=== PATIENT | female | born 1990 | race Asian ===

== ENCOUNTER 2022-03-20 11:48 | Emergency (ER) | payer MEDICAID, SELFPAY ==
--- NOTE | 2022-03-20 14:11 | ECG_ITS ---
Test Reason : LOW HEART RATE Blood Pressure : / mmHG Vent. Rate : 057 BPM Atrial Rate : 057 BPM P-R Int : 116 ms QRS Dur : 084 ms QT Int : 468 ms P-R-T Axes : 018 051 045 degrees QTc Int : 455 ms Sinus bradycardia Otherwise normal ECG No previous ECGs available Referred By: Hortensia De Jesus Electronically Signed By:JODI CORDOVA MD
--- NOTE | 2022-03-20 14:11 | ED.GENADULT ---
HPI - General Adult General Chief complaint: Dizziness Stated complaint: Low Heart Rate Sent by Dentist Time Seen by Provider: 03/20/22 14:33 Related Data Allergies Allergy/AdvReac Type Severity Reaction Status Date / Time No Known Allergies Allergy Verified 03/20/22 14:14 [No Known Allergies*] [facility] Social History Social History Advance Directives: No Physical Exam ED Vital Signs: Vital Signs - 24 hr 03/20/22 14:15 03/20/22 14:59 03/20/22 16:07 Temperature 97.3 F Pulse Rate 56 54 50 Respiratory Rate 18 18 Blood Pressure 132/51 L 131/63 132/56 L Pulse Oximetry 100 Oxygen Delivery Method Room Air Room Air 03/20/22 16:09 03/20/22 16:11 Temperature Pulse Rate 63 58 Respiratory Rate Blood Pressure 122/48 L 132/61 Pulse Oximetry Oxygen Delivery Method BMI result Body Mass Index 25.0 Course Course Course Narrative: 31-year-old female without significant past medical history presents as being referred from her dentist for ?low heart rate?. Patient states that she has had intermittent episodes of dizziness that has been ongoing and associated with some blurred vision for which she was going to see eye doctor. Otherwise, she denies any significant past family history or personal history and denies any fevers, chills, shortness of breath/chest pain/palpitations. VITAL SIGNS: Reviewed. GENERAL: Well developed, well nourished, in no acute distress. HEAD: Normocephalic/atraumatic EYES: PERRLA, EOMI EARS: Ext canals without abnormality OROPHARYNX: no oral lesions noted, posterior pharynx clear LUNGS: Normal breath sounds. No adventitious sounds or accessory muscle use. CARDIOVASCULAR: Regular rate and rhythm without noted murmurs ABDOMEN: Soft, non-tender, non-distended with bowel sounds. MUSCULOSKELETAL: No tenderness, deformities, or effusions noted on gross inspection. EXTREMITIES: No cyanosis, clubbing or edema. SKIN: Inspection of the skin reveals no rashes NEUROLOGIC: Alert and oriented x 4. Strength and sensation to light touch were grossly intact x 4. 31-year-old female history and clinical presentation likely consistent with physiologic bradycardia. -EKG, basic labs Medical Decision Making Lab Data Result diagrams: 03/20/22 14:59 03/20/22 14:59 Labs: Lab Results 03/20/22 03/20/22 03/20/22 Range/Units 14:59 14:59 14:59 WBC 7.8 (4.8-10.8) X10*3/uL RBC 4.70 (4.20-5.50) X10*6/uL Hgb 12.7 (12.0-16.0) g/dl Hct 39.6 (37.0-47.0) % MCV 84.3 (80.0-98.0) fL MCH 27.0 (27.0-33.0) pg MCHC 32.1 (31.0-35.0) g/dl RDW 13.8 (11.0-16.0) % Plt Count 272 (160-400) X10*3/uL MPV 9.2 L (9.4-12.3) fL Absolute Nucleated RBC 0.000 (0.0-0.012) X10*3/uL Nucleated RBC % (auto) 0.0 (0.0-0.2) /100WBC Sodium 137 (135-145) mmol/L Potassium 4.3 (3.3-5.1) mmol/L Chloride 103 (96-108) mmol/L Carbon Dioxide 27 (22-29) mmol/L Anion Gap 11 L (12-20) BUN 11 (9-16) mg/dL Creatinine 0.62 (0.5-1.4) mg/dL Estim Creat Clear Calc 120.8 Estimated GFR > 60 Random Glucose 87 (60-115) mg/dL Calcium 9.7 (8.4-10.2) mg/dL TSH 0.83 (0.32-4.0) uIU/mL Discharge Plan Discharge Clinical Impression: Bradycardia Patient Disposition: Home, Self-Care Instructions: Bradycardia (ED) Additional Instructions: Your blood work and thyroid levels were within normal limits. We le blood to test you for Lyme disease, however; can take several days to come back and we will call you with results. Educated to return to the hospital with worsening dizziness, feeling faint, passing out, fever, chills, changes in vision, worsening headache. Recommended follow-up with Cardiology and her primary care provider for further treatment and management. Referrals: Negrita Cuevas MD [Primary Care Provider] - Interventions: ED Discharge Assessment Last Done: 03/20/22 17:25 Discharge Date/Time: 03/20/22 17:26 Print Language: Maldivian
[2022-03-20 14:15] VITALS: BP 132/51; PULSE 56; RESP 18; TEMP 36.3; O2SAT 100; BMI 25.0
--- OUTSIDE RECORDS SUMMARY | 2022-03-20 14:44 | XMS_ITS | Continuity of Care Document ---
:1990 Author Organization [facility] Address [address] [place] [address]- Care Team Providers Name Role Phone Jessica Craig MD Primary Care Physician Encounter [facility] Date(s): 12/28/21 - 01/27/22 [facility] [address] [place], [place] [address] Allergies, Adverse Reactions, Alerts Substance Reaction Severity Status Other Environmental Allergy1 Act shun 1ammonia spray Immunizations Given and Recorded Vaccine Date Status Refusal Reason SARS-CoV-2 (COVID-19) mRNA BNT-162b2 vac 07/29/20 Recorde d SARS-CoV-2 (COVID-19) mRNA BNT-162b2 vac 07/08/20 Recorde d influenza virus vaccine, inactivated1 01/23/19 Given influenza virus vaccine, inactivated 02/06/18 Recorded Typhoid Vaccine, Inactivated 07/09/13 Given Hepatitis A Adult Vaccine2 07/09/13 Given tetanus/diphtheria/pertussis, acel(Tdap)3 07/03/10 Given 1Result Comment: [facility] [id number] Comment: [07/09/2013] hep A #13Admin Note: 03/09/08 vis form given Problem List Condition Confirmation Course Effective Dates Status Health Stat us Informant Avulsion of toenail Confirmed 09/20/12 Active Lower abdominal Confirmed Active pain Premenopause Confirmed Active menorrhagia Renal calculus or Confirmed 02/25/13 Active stone Travel vaccinations Confirmed Active Social History Social History Type Response Smoking Status Never smoker; Tobacco user i n household: No entered on: 07/29/14 Sex Patient Care team information PersonnelName: Jessica Craig MD Address: Address: [address] [place] [address]-
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
--- OUTSIDE RECORDS SUMMARY | 2022-03-20 14:44 | XMS_ITS | Continuity of Care Document ---
:1990 Author Organization [facility] Address [address] [place] [address]- Care Team Providers Name Role Phone Kiara BARRAZA, Jessica Grant Primary Care Physician [place] [facility] [place] 06/08/19 - 06/15/19 [facility] [address] [place] [address]- [facility] Encounter Diagnosis Acute URI (Discharge Diagnosis) - 06/08/19 Attending Physician: Sudheer Nazario DO Allergies, Adverse Reactions, Alerts Substance Reaction Severity Status NKA Active Immunizations Given and Recorded Vaccine Date Status Refusal Reason influenza virus vaccine, inactivated1 01/23/19 Given Typhoid Vaccine, Inactivated 07/09/13 Given Hepatitis A Adult Vaccine2 07/09/13 Given tetanus/diphtheria/pertussis, acel(Tdap)3 07/03/10 Given 1Result Comment: [facility] [phone] Comment: [07/09/2013] hep A #13Admin Note: 03/09/08 [...] Start Date: 06/07/16 Stop Date: 08/06/16 Status: Orderedmeclizine 25 mg oral tablet 1 tablet = 25 mg, By Mouth, 3 times a day, PRN for dizziness, for 7 days, # 21 tablet, 1 Refills, Acute 06/22/19 16:44:00 EST, 06/08/19 16:44:00 EST, Tablet, [facility], 169.5, cm, 06/08/19 16:11:00 EST, Height, 64.8, kg, 01/23/19 9:08:00 EDT,... Start Date: 06/08/19 Stop Date: 06/22/19 Status: Orderedmessage therapy message therapy, See Instructions, [...] 1 Refills, Maintenance, 06/08/19 16:45:00 EST, Tablet, [facility]pharm[facility] #2024, 169.5, cm, 06/08/19 16:11:00 EST, Height, 64.8, [...] or stone(Confirmed) 02/25/13 Active Travel vaccinations(Confirmed) Active Diagnosis Diagnosis Type Effective Dates Health Status Clinical Serv ice Informant Acute URI Discharge 06/08/19 Diagnosis Vital Signs Most recent to oldest [Reference Range]: 1 Height 169.5 cm (06/08/19 4:11 PM) Weight 66.1 kg (06/08/19 4:11 PM) Oxygen Saturation [94-100 %] 98 % (06/08/19 4:11 PM) Pulse Rate [55-90 bpm] 82 bpm (06/08/19 4:11 PM) Body Mass Index [18.5-24.99] 23.01 (06/08/19 4:11 PM) Blood Pressure [90-138/55-84 mm Hg] 108/82 mm Hg (06/08/19 4:11 PM) Temperature [96.8-100.4 DegF] 98.1 DegF (06/08/19 4:11 PM) Blood pressure sites Arm, left (06/08/19 4:11 PM) Temperature Route Oral (06/08/19 4:11 PM) Weight Obtained Via Pediatric scale (06/08/19 4:11 PM) Social History Social History Type Response Smoking Status Never smoker; Tobacco user i n household: No entered on: 07/29/14 Sex
--- OUTSIDE RECORDS SUMMARY | 2022-03-20 14:44 | XMS_ITS | Continuity of Care Document ---
:1990 Author Organization [facility] Address [address] [place] [address]- Care Team Providers Name Role Phone Kiara BARRAZA, Jessica Grant Primary Care Physician [phone] Encounter [facility] [place] Date(s): 07/25/21 - 08/01/21 [facility] [address] [place] [address]- Encounter Diagnosis Headache (Discharge Diagnosis) - 07/25/21 Vertigo (Discharge Diagnosis) - 07/25/21 Attending Physician: Nhi Garcia NP Allergies, Adverse Reactions, Alerts Substance Reaction Severity [...] Given tetanus/diphtheria/pertussis, acel(Tdap)3 07/03/10 Given 1Result Comment: [facility] [phone] Comment: [07/09/2013] hep A #13Admin Note: 03/09/08 [...] Start Date: 06/07/16 Stop Date: 08/06/16 Status: Orderedfluticasone 50 mcg/inh nasal spray 1 sprays, Nares, Both, 2 times a day, # 16 Gm, 0 Refills, Maintenance, 05/19/21 15:37:00 EST, [place]/pharmacy #2024, Partial fill upon patient request if the prescription is for a schedule II opioid drug., 1 sprays Nares, Both 2 times a day, 169.5... Start Date: 05/19/21 Status: Orderedmeclizine 25 mg oral tablet TAKE 1 TABLET BY MOUTH 3 TIMES A DAY FOR 7 DAYS FOR DIZZINESS Start Date: 03/11/20 Status: Orderedmessage therapy message therapy, See Instructions, [...] 1 Refills, Maintenance, 06/08/19 16:45:00 EST, Tablet, [facility]/pharmacy #2024, 169.5, cm, 06/08/19 16:11:00 EST, Height, [...] Dates Health Status Clinical Serv ice Informant Headache Discharge 07/25/21 Diagnosis Vertigo Discharge 07/25/21 Diagnosis Vital Signs Most recent to oldest [Reference Range]: 1 Height 169.5 cm (07/25/21 9:31 AM) Weight 71.9 kg (07/25/21 9:31 AM) Oxygen Saturation [94-100 %] 98 % (07/25/21 9:31 AM) Pulse Rate [55-90 bpm] 62 bpm (07/25/21 9:31 AM) Body Mass Index [18.5-24.99] 25.03 *H* (07/25/21 9:31 AM) Blood Pressure [90-138/55-84 mm Hg] 121/49 mm Hg (07/25/21 9:31 AM) Blood pressure sites Arm, right (07/25/21 9:31 AM) Weight Obtained Via Standing scale (07/25/21 9:31 AM) Social History Social History Type Response Smoking Status Never smoker; Tobacco user i n household: No entered on: 07/29/14 Sex
--- OUTSIDE RECORDS SUMMARY | 2022-03-20 14:44 | XMS_ITS | Continuity of Care Document ---
:1990 Author Organization [facility] Address [address] [place] [address]- Care Team Providers Name Role Phone Kiara BARRAZA, Jessica Grant Primary Care Physician [place] [facility] [place] 02/19/20 [facility] [address] [place] [address]- [facility] Attending Physician: Jairon Freitas MD Referring Physician: Jessica Craig MD Allergies, Adverse Reactions, Alerts Substance Reaction Severity Status Other Environmental Allergy1 Act shun 1ammonia spray Immunizations Given and Recorded Vaccine Date Status Refusal Reason influenza virus vaccine, inactivated1 01/23/19 Given Typhoid Vaccine, Inactivated 07/09/13 Given Hepatitis A Adult Vaccine2 07/09/13 Given tetanus/diphtheria/pertussis, acel(Tdap)3 07/03/10 Given 1Result Comment: [facility] [phone] Comment: [07/09/2013] hep A #13Admin Note: 03/09/08 [...] or stone(Confirmed) 02/25/13 Active Travel vaccinations(Confirmed) Active Social History Social History Type Response Smoking Status Never smoker; Tobacco user i n household: No entered on: 07/29/14 Sex
--- OUTSIDE RECORDS SUMMARY | 2022-03-20 14:44 | XMS_ITS | Continuity of Care Document ---
:1990 Author Organization [facility] Address [address] [place] [address]- Care Team Providers Name Role Phone Kiara BARRAZA, Jessica Grant Primary Care Physician [phone] Encounter [facility] Date(s): 03/11/20 - 04/10/20 [facility] [address] [place], [place] [address] Allergies, Adverse Reactions, Alerts Substance Reaction Severity Status Other Environmental Allergy1 Act shun 1ammonia spray Immunizations Given and Recorded Vaccine Date Status Refusal Reason influenza virus vaccine, inactivated1 01/23/19 Given Typhoid Vaccine, Inactivated 07/09/13 Given Hepatitis A Adult Vaccine2 07/09/13 Given tetanus/diphtheria/pertussis, acel(Tdap)3 07/03/10 Given 1Result Comment: [facility] [phone] Comment: [07/09/2013] hep A #13Admin Note: 03/09/08 [...] 08/06/16 Status: Orderedmeclizine 25 mg oral tablet TAKE [...]
--- OUTSIDE RECORDS SUMMARY | 2022-03-20 14:44 | XMS_ITS | Continuity of Care Document ---
:1990 Author Organization [facility] Address [address] [place] [address]- Care Team Providers Name Role Phone Kiara BARRAZA, Jessica Grant Primary Care Physician [phone] [place] [facility] [place] 02/13/22 [facility] [address] [place] [address]- Encounter Diagnosis Allergic reaction (Discharge Diagnosis) - 02/06/22 Attending Physician: Abhilash ALBARADO, Yumiko Referring Physician: Jessica Craig MD Allergies, Adverse Reactions, Alerts Substance Reaction Severity Status ammoniated mercury topical Activ e iohexol Active Omnipaque 3001 Active Other Environmental Allergy2 Act shun 1facial [id number] spray Immunizations Given and Recorded Vaccine Date Status Refusal Reason SARS-CoV-2 (COVID-19) mRNA BNT-162b2 vac 07/29/20 Recorde d SARS-CoV-2 (COVID-19) mRNA BNT-162b2 vac 07/08/20 Recorde d influenza virus vaccine, inactivated1 01/23/19 Given influenza virus vaccine, inactivated 02/06/18 Recorded Typhoid Vaccine, Inactivated 07/09/13 Given Hepatitis A Adult Vaccine2 07/09/13 Given tetanus/diphtheria/pertussis, acel(Tdap)3 07/03/10 Given 1Result Comment: [facility] [phone] Comment: [07/09/2013] hep A #13Admin Note: 03/09/08 vis form given Medications No Known Medications Problem List Condition Confirmation Course Effective Dates Status Health Stat us Informant Avulsion of toenail Confirmed 09/20/12 Active Lower abdominal Confirmed Active pain Premenopause Confirmed Active menorrhagia Renal calculus or Confirmed 02/25/13 Active stone Travel vaccinations Confirmed Active Diagnosis Diagnosis Type Effective Dates Health Status Clinical In formant Service Allergic Discharge 02/06/22 reaction Diagnosis Vital Signs Most recent to oldest [Reference Range]: 1 Height 163 cm (02/06/22 2:02 PM) Oxygen Saturation [94-100 %] 100 % (02/06/22 2:02 PM) Pulse Rate [55-90 bpm] 56 bpm (02/06/22 2:02 PM) Blood Pressure [90-138/55-84 mm Hg] 147/73 mm Hg *H* (02/06/22 2:02 PM) Respiratory Rate [16-30 br/min] 16 br/min (02/06/22 2:02 PM) Temperature [96.8-100.4 DegF] 97.8 DegF (02/06/22 2:02 PM) Mode of Delivery (Oxygen) Room air (02/06/22 2:02 PM) Blood pressure sites Arm, left (02/06/22 2:02 PM) Temperature Route Temporal (02/06/22 2:02 PM) Social History Social History Type Response Smoking Status Never smoker; Tobacco user i n household: No entered on: 07/29/14 Sex Patient Care team information PersonnelName: Kiara BARRAZA, Jessica Grant Address: [facility] [place] [address]
--- OUTSIDE RECORDS SUMMARY | 2022-03-20 14:44 | XMS_ITS | Continuity of Care Document ---
:1990 Author Organization [facility] Address [address] [place] [address]- Care Team Providers Name Role Phone Kiara BARRAZA, Jessica Grant Primary Care Physician [place] [facility] [place] Date(s): 02/06/22 - 03/08/22 [facility] [address] [place] [address]- Attending Physician: Kristin Hernandez Admitting Physician: Kristin Hernandez Referring Physician: AdmtrKristin Allergies, Adverse Reactions, Alerts Substance Reaction Severity Status ammoniated mercury topical Activ e iohexol Active Omnipaque 3001 Active Other Environmental Allergy2 Act shun 1facial [id number] spray Immunizations Given and Recorded Vaccine Date Status Refusal Reason SARS-CoV-2 (COVID-19) mRNA BNT-162b2 vac 07/29/20 Recorde d SARS-CoV-2 (COVID-19) mRNA BNT-162b2 vac 07/08/20 Recorde d influenza virus vaccine, inactivated1 01/23/19 Given influenza virus vaccine, inactivated 02/06/18 Recorded Typhoid Vaccine, Inactivated 07/09/13 Given Hepatitis A Adult Vaccine2 07/09/13 Given tetanus/diphtheria/pertussis, acel(Tdap)3 07/03/10 Given 1Result Comment: [facility] [phone] Comment: [07/09/2013] hep A #13Admin Note: 03/09/08 [...] on: 07/29/14 Sex Patient Care team information Care Team PersonnelName: Kiara BARRAZA, Jessica Grant Position: [facility] Primary Care Physician Member Role: PCP Address: Address: [address] [place] [address]- Care Team Related PersonsName: DEBI TURCIOSJOEL Address: home [address] [place] [address]
--- OUTSIDE RECORDS SUMMARY | 2022-03-20 14:44 | XMS_ITS | Continuity of Care Document ---
:1990 Author Organization [facility] Address [address] [place] [address]- Care Team Providers Name Role Phone Kiara BARRAZA, Jessica Grant Primary Care Physician [phone] [place] [facility] [place] 06/15/19 - 06/22/19 [facility] [address] [place] [address]- [facility] Encounter Diagnosis Acute URI (Discharge Diagnosis) - 06/23/19 Dizziness (Discharge Diagnosis) - 06/23/19 Attending Physician: Kiara BARRAZA, Jessica Grant Allergies, Adverse Reactions, Alerts Substance Reaction Severity Status NKA Active Immunizations Given and Recorded Vaccine Date Status Refusal Reason influenza virus vaccine, inactivated1 01/23/19 Given Typhoid Vaccine, Inactivated 07/09/13 Given Hepatitis A Adult Vaccine2 07/09/13 Given tetanus/diphtheria/pertussis, acel(Tdap)3 07/03/10 Given 1Result Comment: [facility] [phone] Comment: [07/09/2013] hep A #13Admin Note: 03/09/08 [...] Clinical Serv ice Informant Acute URI Discharge 06/23/19 Diagnosis Dizziness Discharge 06/23/19 Diagnosis Vital Signs Most recent to oldest [Reference Range]: 1 Height 169.5 cm (06/15/19 11:42 AM) Weight 66.8 kg (06/15/19 11:42 AM) Oxygen Saturation [94-100 %] 98 % (06/15/19 11:42 AM) Pulse Rate [55-90 bpm] 59 bpm (06/15/19 11:42 AM) Body Mass Index [18.5-24.99] 23.25 (06/15/19 11:42 AM) Blood Pressure [90-138/55-84 mm Hg] 104/64 mm Hg (06/15/19 11:42 AM) Temperature [96.8-100.4 DegF] 98.1 DegF (06/15/19 11:42 AM) Blood pressure sites Arm, right (06/15/19 11:42 AM) Weight Obtained Via Standing scale (06/15/19 11:42 AM) Social History Social History Type Response Smoking Status Never smoker; Tobacco user i n household: No entered on: 07/29/14 Sex
--- OUTSIDE RECORDS SUMMARY | 2022-03-20 14:44 | XMS_ITS | Continuity of Care Document ---
:1990 Author Organization [facility] Address [address] [place] [address]- Care Team Providers Name Role Phone Kiara BARRAZA, Jessica Grant Primary Care Physician [phone] Encounter [facility] [place] Date(s): 05/19/21 - 05/26/21 [facility] [address] [place] [address]- Encounter Diagnosis Urinary incontinence (Discharge Diagnosis) - 05/19/21 Pelvic pain (Discharge Diagnosis) - 05/19/21 Left shoulder pain (Discharge Diagnosis) - 05/19/21 Dizziness (Discharge Diagnosis) - 05/19/21 Attending Physician: Jessica Craig MD Allergies, Adverse Reactions, Alerts Substance Reaction Severity Status Other Environmental Allergy1 Act shun 1ammonia spray Immunizations Given and Recorded Vaccine Date Status Refusal Reason SARS-CoV-2 (COVID-19) mRNA BNT-162b2 vac 07/29/20 Recorde d SARS-CoV-2 (COVID-19) mRNA BNT-162b2 vac 07/08/20 Recorde d influenza virus vaccine, inactivated1 01/23/19 Given Typhoid Vaccine, Inactivated 07/09/13 Given Hepatitis A Adult Vaccine2 07/09/13 Given tetanus/diphtheria/pertussis, acel(Tdap)3 07/03/10 Given 1Result Comment: [facility] [phone] Comment: [07/09/2013] hep A #13Admin Note: 03/09/08 [...] Gm, 0 Refills, Maintenance, 05/19/21 15:37:00 EST, [place],[facility]/pharmacy #2024, Partial fill upon patient request [...] 1 Refills, Maintenance, 06/08/19 16:45:00 EST, Tablet, [facility]/pharmacy #2024, 169.5, cm, 06/08/19 16:11:00 EST, [...] Active Diagnosis Diagnosis Type Effective Dates Health Clinical Infor mant Status Service Urinary Discharge 05/19/21 incontinence Diagnosis Pelvic pain Discharge 05/19/21 Diagnosis Left shoulder pain Discharge 05/19/21 Diagnosis Dizziness Discharge 05/19/21 Diagnosis Vital Signs Most recent to oldest [Reference Range]: 1 Height 169.5 cm (05/19/21 2:17 PM) Pulse Rate [55-90 bpm] 64 bpm (05/19/21 2:17 PM) Blood Pressure [90-138/55-84 mm Hg] 121/78 mm Hg (05/19/21 2:17 PM) Blood pressure sites Arm, right (05/19/21 2:17 PM) Social History Social History Type Response Smoking Status Never smoker; Tobacco user i n household: No entered on: 07/29/14 Sex
--- OUTSIDE RECORDS SUMMARY | 2022-03-20 14:44 | XMS_ITS | Continuity of Care Document ---
:1990 Author Organization [facility] Address [address] [place] [address]- Care Team Providers Name Role Phone Kiara BARRAZA, Jessica Grant Primary Care Physician [place] [facility] [place]21 - 07/14/21 [facility] [address] [place], [place] [address] Allergies, Adverse Reactions, Alerts Substance Reaction Severity [...] tetanus/diphtheria/pertussis, acel(Tdap)3 07/03/10 Given 1Result Comment: [facility] [phone] Comment: [07/09/2013] hep A #13Admin Note: 03/09/08 [...] Gm, 0 Refills, Maintenance, 05/19/21 15:37:00 EST, [place],[facility]/pharmacy #2025, Partial fill upon patient request if the [...] 1 Refills, Maintenance, 06/08/19 16:45:00 EST, [place], [facility]/pharmacy #2025, 169.5, cm, 06/08/19 16:11:00 EST, Height, [...] E By Mouth, Daily, 0 Refills, Maintenance, 01/05/18 13:28:39 Start Date: 04/26/17 Status: Ordered Problem List Condition Effective Dates Status Health Status Informant Avulsion of toenail(Confirmed) 09/20/12 Active Premenopause menorrhagia(Confirmed) Active Renal calculus or stone(Confirmed) 02/25/13 Active Travel vaccinations(Confirmed) Active Social History Social History Type Response Smoking Status Never smoker; Tobacco user i n household: No entered on: 07/29/14 Sex
--- OUTSIDE RECORDS SUMMARY | 2022-03-20 14:44 | XMS_ITS | Continuity of Care Document ---
:1990 Author Organization [facility] Address [address] [place] [address]- Care Team Providers Name Role Phone Kiara BARRAZA, Jessica Grant Primary Care Physician [phone] [place] [facility] [place]29/20 - 01/15/21 [facility] [address] [place] [address]- Attending Physician: Jessica Craig MD Allergies, Adverse Reactions, Alerts Substance Reaction Severity Status Other Environmental Allergy1 Act shun 1ammonia spray Immunizations Given and Recorded Vaccine Date Status Refusal Reason influenza virus vaccine, inactivated1 01/23/19 Given Typhoid Vaccine, Inactivated 07/09/13 Given Hepatitis A Adult Vaccine2 07/09/13 Given tetanus/diphtheria/pertussis, acel(Tdap)3 07/03/10 Given 1Result Comment: [facility] [phone] Comment: [07/09/2013] hep A #13Admin Note: 03/09/08 [...]
--- OUTSIDE RECORDS SUMMARY | 2022-03-20 14:44 | XMS_ITS | Continuity of Care Document ---
:1990 Author Organization [facility] Address [address] [place] [address]- Care Team Providers Name Role Phone Kiara BRARAZA, Jessica Grant Primary Care Physician [place] [facility] [place] 12/27/21 - 01/27/22 [facility] [address] [place], [place] [address] Attending Physician: Jessica Craig MD Allergies, Adverse [...] Given tetanus/diphtheria/pertussis, acel(Tdap)3 07/03/10 Given 1Result Comment: [facility] [phone] Comment: [07/09/2013] hep A #13Admin Note: 03/09/08 [...] PersonnelName: Kiara BARRAZA, Jessica Grant Address: Address: [address] [place], [place] [address]
--- OUTSIDE RECORDS SUMMARY | 2022-03-20 14:44 | XMS_ITS | Continuity of Care Document ---
:1990 Author Organization [facility] Address [address] [place] [address]- Care Team Providers Name Role Phone Jessica Craig MD Primary Care Physician [place] [facility] [place] - 01/27/22 [facility] [address] [place], [place] [address] Attending Physician: Jessica Craig [...] tetanus/diphtheria/pertussis, acel(Tdap)3 07/03/10 Given 1Result Comment: [facility] [phone] Comment: [07/09/2013] hep A #13Admin Note: 03/09/08 [...] 07/29/14 Sex Patient Care team information PersonnelName: Blanca Craig MDce May D Address: Address: [address] [place] [address]-
--- OUTSIDE RECORDS SUMMARY | 2022-03-20 14:44 | XMS_ITS | Continuity of Care Document ---
:1990 Author Organization [facility] Address [address] [place] [address]- Care Team Providers Name Role Phone Kiara BARRAZA, Jessica Grant Primary Care Physician [phone] [place] [facility] [place]20 - 07/07/20 [facility] [address] [place] [address]- Attending Physician: Kristin Hernandez Admitting Physician: AdmKristin pappas Referring Physician: AdmtrKristin Allergies, Adverse Reactions, Alerts Substance Reaction Severity Status Other Environmental Allergy1 Act shun 1ammonia spray Immunizations Given and Recorded Vaccine Date Status Refusal Reason influenza virus vaccine, inactivated1 01/23/19 Given Typhoid Vaccine, Inactivated 07/09/13 Given Hepatitis A Adult Vaccine2 07/09/13 Given tetanus/diphtheria/pertussis, acel(Tdap)3 07/03/10 Given 1Result Comment: [facility] [phone] Comment: [07/09/2013] hep A #13Admin Note: 03/09/08 [...]
--- OUTSIDE RECORDS SUMMARY | 2022-03-20 14:44 | XMS_ITS | Continuity of Care Document ---
:1990 Author Organization [facility] Address [address] [place] [address]- Care Team Providers Name Role Phone Kiara BARRAZA, Jessica Grant Primary Care Physician [phone] En[place] [facility] [place] Date(s): 06/15/19 - 06/25/19 [facility] [address] [place] [address]- [facility] Attending Physician: Kristin Hernandez Admitting Physician: AdmKristin pappas Referring Physician: AdmtrKristin Allergies, Adverse Reactions, Alerts Substance Reaction Severity Status NKA Active Immunizations Given and Recorded Vaccine Date Status Refusal Reason influenza virus vaccine, inactivated1 01/23/19 Given Typhoid Vaccine, Inactivated 07/09/13 Given Hepatitis A Adult Vaccine2 07/09/13 Given tetanus/diphtheria/pertussis, acel(Tdap)3 07/03/10 Given 1Result Comment: [facility] [phone] Comment: [07/09/2013] hep A #13Admin Note: 03/09/08 [...]
--- OUTSIDE RECORDS SUMMARY | 2022-03-20 14:44 | XMS_ITS | Continuity of Care Document ---
:1990 Author Organization [facility] Address [address] [place] [address]- Care Team Providers Name Role Phone Kiara BARRAZA, Jessica Grant Primary Care Physician [place] [facility] [place] 07[place]11/21 - 08/10/21 [facility] [address] [place] [address]- Allergies, Adverse Reactions, Alerts Substance Reaction Severity [...] tetanus/diphtheria/pertussis, acel(Tdap)3 07/03/10 Given 1Result Comment: [facility] [phone] Comment: [07/09/2013] hep A #13Admin Note: 03/09/08 [...] Gm, 0 Refills, Maintenance, 05/19/21 15:37:00 EST, [place],[facility]/pharmacy #202, Partial fill upon patient request if the [...] Refills, Maintenance, 06/08/19 16:45:00 EST, Tablet, [facility]/pharmacy #2024, 169.5, cm, 06/08/19 16:11:00 EST, Height, [...]
--- OUTSIDE RECORDS SUMMARY | 2022-03-20 14:45 | XMS_ITS | Continuity of Care Document ---
:1990 Author Organization [facility] Address [address] [place] [address]- Care Team Providers Name Role Phone Kiara BARRAZA, Jessica Grant Primary Care Physician [phone] [place] [facility] [place]26[place]21 - 06/25/21 [facility] [address] [place], [place] [address] Allergies, Adverse Reactions, Alerts Substance Reaction [...] tetanus/diphtheria/pertussis, acel(Tdap)3 07/03/10 Given 1Result Comment: [facility] [phone] Comment: [07/09/2013] hep A #13Admin Note: 03/09/08 [...] Gm, 0 Refills, Maintenance, 05/19/21 15:37:00 EST, [place],[facility]/pharmacy #2025, Partial fill upon patient request if [...] 1 Refills, Maintenance, 06/08/19 16:45:00 EST, Tablet, [facility]/pharmacy #5, 169.5, cm, 06/08/19 16:11:00 EST, [...]
--- OUTSIDE RECORDS SUMMARY | 2022-03-20 14:45 | XMS_ITS | Continuity of Care Document ---
:1990 Author Organization [facility] Address [address] [place] [address]- Care Team Providers Name Role Phone Kiara BARRAZA, Jessica Grant Primary Care Physician En[facility] Date(s): 12/16/20 - 01/15/21 [facility] [address] [place], [place] [address] Attending Physician: Kristin Hernandez Admitting Physician: AdmKristin pappas Referring Physician: AdmtrKristin Allergies, Adverse Reactions, Alerts Substance Reaction Severity Status Other Environmental Allergy1 Act shun 1ammonia spray Immunizations Given and Recorded Vaccine Date Status Refusal Reason influenza virus vaccine, inactivated1 01/23/19 Given Typhoid Vaccine, Inactivated 07/09/13 Given Hepatitis A Adult Vaccine2 07/09/13 Given tetanus/diphtheria/pertussis, acel(Tdap)3 07/03/10 Given 1Result Comment: [facility] [phone] Comment: [07/09/2013] hep A #13Admin Note: 03/09/08 [...]
--- OUTSIDE RECORDS SUMMARY | 2022-03-20 14:45 | XMS_ITS | Continuity of Care Document ---
:1990 Author Organization [facility] Address [address] [place] [address]- Care Team Providers Name Role Phone Kiara BRARAZA, Jessica Grant Primary Care Physician [phone] [place] [facility] [place]21 - 08/24/21 [facility] [address] [place] [address]- Attending Physician: Kristin Hernandez Admitting Physician: Kristin [...] tetanus/diphtheria/pertussis, acel(Tdap)3 07/03/10 Given 1Result Comment: [facility] [phone] Comment: [07/09/2013] hep A #13Admin Note: 03/09/08 [...] Gm, 0 Refills, Maintenance, 05/19/21 15:37:00 EST, [place],[facility]/pharmacy #2024, Partial fill upon patient request [...] 1 Refills, Maintenance, 06/08/19 16:45:00 EST, Tablet, [facility]/pharmacy #2024, 169.5, cm, 06/08/19 16:11:00 EST, [...]
--- OUTSIDE RECORDS SUMMARY | 2022-03-20 14:45 | XMS_ITS | Continuity of Care Document ---
:1990 Author Organization [facility] Address [address] [place] [address]- Care Team Providers Name Role Phone Kiara BARRAZA, Jessica Grant Primary Care Physician [phone] [place] [facility] [place] 01[place]10[place]22 - 01/17/22 [facility] [address] [place] [address]- Encounter Diagnosis Lower abdominal pain (Discharge Diagnosis) - 01/10/22 Attending Physician: Jessica Craig MD Allergies, Adverse [...] Given tetanus/diphtheria/pertussis, acel(Tdap)3 07/03/10 Given 1Result Comment: [facility] [phone] Comment: [07/09/2013] hep A #13Admin Note: 03/09/08 vis form given Medications No Known Medications Problem List Condition Confirmation Course Effective Dates Status Health Stat us Informant Avulsion of toenail Confirmed 09/20/12 Active Lower abdominal Confirmed Active pain Premenopause Confirmed Active menorrhagia Renal calculus or Confirmed 02/25/13 Active stone Travel vaccinations Confirmed Active Diagnosis Diagnosis Type Effective Dates Health Status Clinical In formant Service Lower abdominal Discharge 01/10/22 pain Diagnosis Vital Signs Most recent to oldest [Reference Range]: 1 Height 163 cm (01/10/22 1:22 PM) Weight 72.2 kg (01/10/22 1:22 PM) Oxygen Saturation [94-100 %] 99 % (01/10/22 1:22 PM) Pulse Rate [55-90 bpm] 71 bpm (01/10/22 1:22 PM) Body Mass Index [18.5-24.99 kg/m2] 27.17 kg/m2 *H* (01/10/22 1:22 PM) Blood Pressure [90-138/55-84 mm Hg] 113/54 mm Hg (01/10/22 1:22 PM) Social History Social History Type Response Smoking Status Never smoker; Tobacco user i n household: No entered on: 07/29/14 Sex Patient Care team information PersonnelName: Kiara BARRAZA, Jessica Grant Address: Address: [address] [place] [address]
--- OUTSIDE RECORDS SUMMARY | 2022-03-20 14:45 | XMS_ITS | Continuity of Care Document ---
:1990 Author Organization [facility] Address [address] [place] [address]- Care Team Providers Name Role Phone Kiara BARRAZA, Jessica Grant Primary Care Physician [phone] [place] [facility] [place]21 - 10/04/21 [facility] [address] [place] [address]- Attending Physician: Jessica Craig MD Allergies, Adverse [...] Given 1Result Comment: [facility] [phone] Comment: [07/09/2013] hep A #13Admin Note: 03/09/08 [...] Gm, 0 Refills, Maintenance, 05/19/21 15:37:00 EST, [place],[facility]/pharmacy #2024, Partial fill upon patient request if [...] 1 Refills, Maintenance, 06/08/19 16:45:00 EST, Tablet, [facility]/pharmacy #2024, 169.5, cm, 06/08/19 16:11:00 EST, Height, [...]
--- OUTSIDE RECORDS SUMMARY | 2022-03-20 14:45 | XMS_ITS | Continuity of Care Document ---
:1990 Author Organization [facility] Address [address] [place] [address]- Care Team Providers Name Role Phone Kiara BARRAZA, Jessica Grant Primary Care Physician [place] [facility] [place] 09/04/21 - 10/04/21 [facility] [address] [place] [address]- Attending Physician: Kristin Hernandez Admitting Physician: Kristin [...] Given tetanus/diphtheria/pertussis, acel(Tdap)3 07/03/10 Given 1Result Comment: [facility] [phone] Comment: [07/09/2013] hep A #13Admin Note: 03/09/08 [...] Gm, 0 Refills, Maintenance, 05/19/21 15:37:00 EST, [place],[facility]/pharmacy #2024, Partial fill upon patient request [...] 1 Refills, Maintenance, 06/08/19 16:45:00 EST, Tablet, [facility]/pharmacy #2024, 169.5, cm, 06/08/19 16:11:00 EST, [...]
--- OUTSIDE RECORDS SUMMARY | 2022-03-20 14:45 | XMS_ITS | Continuity of Care Document ---
:1990 Author Organization [facility] Address [address] [place] [address]- Care Team Providers Name Role Phone Kiara BARRAZA, Jessica Grant Primary Care Physician En[place] [facility] [place] Date(s): 05/18/21 - 06/17/21 [facility] [address] [place], [place] [address] Allergies, Adverse Reactions, Alerts Substance Reaction [...] Given tetanus/diphtheria/pertussis, acel(Tdap)3 07/03/10 Given 1Result Comment: [facility] [phone] Comment: [07/09/2013] hep A #13Admin Note: 03/09/08 [...] Gm, 0 Refills, Maintenance, 05/19/21 15:37:00 EST, [place],[facility]/pharmacy #2025, Partial fill upon patient request [...] 1 Refills, Maintenance, 06/08/19 16:45:00 EST, Tablet, [facility]/pharmacy #5, 169.5, cm, 06/08/19 16:11:00 EST, Height, [...]
--- OUTSIDE RECORDS SUMMARY | 2022-03-20 14:45 | XMS_ITS | Continuity of Care Document ---
:1990 Author Organization [facility] Address [address] [place] [address]- Care Team Providers Name Role Phone Kiara BARRAZA, Jessica Grant Primary Care Physician En[place] [facility] [place] Date(s): 10/15/19 - 11/14/19 [facility] [address] [place] [address]- [facility] Attending Physician: Eduardo Hernandez8 Admitting Physician: AdmKristin pappas Referring Physician: AdmtrKristin Allergies, Adverse Reactions, Alerts Substance Reaction Severity Status Other Environmental Allergy1 Act shun 1ammonia spray Immunizations Given and Recorded Vaccine Date Status Refusal Reason influenza virus vaccine, inactivated1 01/23/19 Given Typhoid Vaccine, Inactivated 07/09/13 Given Hepatitis A Adult Vaccine2 07/09/13 Given tetanus/diphtheria/pertussis, acel(Tdap)3 07/03/10 Given 1Result Comment: [facility] [phone] Comment: [07/09/2013] hep A #13Admin Note: 03/09/08 [...]
--- OUTSIDE RECORDS SUMMARY | 2022-03-20 14:45 | XMS_ITS | Continuity of Care Document ---
:1990 Author Organization [facility] Address [address] [place] [address]- Care Team Providers Name Role Phone Kiara BARRAZA, Jessica Grant Primary Care Physician [phone] [place] [facility] [place]19 - 10/22/19 [facility] [address] [place] [address]- [facility] Encounter Diagnosis Shoulder pain, right (Discharge Diagnosis) - 10/15/19 Cervicalgia (Discharge Diagnosis) - 10/15/19 Dizziness (Discharge Diagnosis) - 10/15/19 Attending Physician: Kiara BARRAZA, Jessica Grant Allergies, Adverse Reactions, Alerts Substance Reaction Severity Status Other Environmental Allergy1 Act shun 1ammonia spray Immunizations Given and Recorded Vaccine Date Status Refusal Reason influenza virus vaccine, inactivated1 01/23/19 Given Typhoid Vaccine, Inactivated 07/09/13 Given Hepatitis A Adult Vaccine2 07/09/13 Given tetanus/diphtheria/pertussis, acel(Tdap)3 07/03/10 Given 1Result Comment: [facility] [phone] Comment: [07/09/2013] hep A #13Admin Note: 03/09/08 [...] days, # 21 tablet, 1 Refills, Acute 10/29/19 13:49:00 EDT, 10/15/19 13:49:00 EDT, Tablet, [facility]/pharmacy #2025, 169.5, cm, 10/15/19 13:14:00 EDT, Height, 64.8, kg, 01/23/19 9:08:00 EDT,... Start Date: 10/15/19 Stop Date: 10/29/19 Status: Orderedmessage therapy message therapy, See Instructions, [...] 1 Refills, Maintenance, 06/08/19 16:45:00 EST, Tablet, [facility]/pharmacy #2025, 169.5, cm, 06/08/19 16:11:00 EST, [...] Dates Health Clinical Infor mant Status Service Shoulder pain, Discharge 10/15/19 right Diagnosis Cervicalgia Discharge 10/15/19 Diagnosis Dizziness Discharge 10/15/19 Diagnosis Vital Signs Most recent to oldest [Reference Range]: 1 Height 169.5 cm (10/15/19 1:14 PM) Weight 66.3 kg (10/15/19 1:14 PM) Pulse Rate [55-90 bpm] 70 bpm (10/15/19 1:14 PM) Body Mass Index [18.5-24.99] 23.08 (10/15/19 1:14 PM) Blood Pressure [90-138/55-84 mm Hg] 97/75 mm Hg (10/15/19 1:14 PM) Blood pressure sites Arm, left (10/15/19 1:14 PM) Social History Social History Type Response Smoking Status Never smoker; Tobacco user i n household: No entered on: 07/29/14 Sex
--- OUTSIDE RECORDS SUMMARY | 2022-03-20 14:45 | XMS_ITS | Continuity of Care Document ---
:1990 Author Organization [facility] Address [address] [facility], [address] [address]- Care Team Providers Name Role Phone Kiara BARRAZA, Jessica Grant Primary Care Physician Encounter 08/01/21 - 09/01/21 [facility] [address], [address] [address]- Attending Physician: Nhi Garcia NP Admitting Physician: Radha ALBARADO, Nhi Referring Physician: Nhi Garcia NP Allergies, Adverse Reactions, [...] Given tetanus/diphtheria/pertussis, acel(Tdap)3 07/03/10 Given 1Result Comment: [facility] [phone] Comment: [07/09/2013] hep A #13Admin Note: 03/09/08 [...] Gm, 0 Refills, Maintenance, 05/19/21 15:37:00 EST, [place],[facility]/pharmacy #2024, Partial fill upon patient request [...] 1 Refills, Maintenance, 06/08/19 16:45:00 EST, [place]t, [facility]/pharmacy #2024, 169.5, cm, 06/08/19 16:11:00 EST, [...]
--- OUTSIDE RECORDS SUMMARY | 2022-03-20 14:45 | XMS_ITS | Continuity of Care Document ---
:1990 Author Organization [facility] Address [address] [place] [address]- Care Team Providers Name Role Phone Kiara BARRAZA, Jessica Grant Primary Care Physician [place] [facility] [place] [place] 12/25/21 - 01/01/22 [facility] [address] [place] [address]- Encounter Diagnosis Dizziness (Discharge Diagnosis) - 12/25/21 Attending Physician: Not on Staff, Attending MD Referring Physician: Kiara BARRAZA, Jessica Grant Allergies, Adverse [...] tetanus/diphtheria/pertussis, acel(Tdap)3 07/03/10 Given 1Result Comment: [facility] [phone] Comment: [07/09/2013] hep A #13Admin Note: 03/09/08 [...] Gm, 0 Refills, Maintenance, 05/19/21 15:37:00 EST, [place],[facility]/pharmacy #2024, Partial fill upon patient request if [...] 1 Refills, Maintenance, 06/08/19 16:45:00 EST, Tablet, [facility]/pharmacy #2024, 169.5, cm, 06/08/19 16:11:00 EST, Height, [...] Dates Health Status Clinical Serv ice Informant Dizziness Discharge 12/25/21 Diagnosis Vital Signs Most recent to oldest [Reference Range]: 1 Height 169.5 cm (12/25/21 8:30 AM) Oxygen Saturation [94-100 %] 100 % (12/25/21 8:30 AM) Pulse Rate [55-90 bpm] 75 bpm (12/25/21 8:30 AM) Blood Pressure [90-138/55-84 mm Hg] 119/76 mm Hg (12/25/21 8:30 AM) Respiratory Rate [16-30 br/min] 16 br/min (12/25/21 8:30 AM) Temperature [96.8-100.4 DegF] 97.3 DegF (12/25/21 8:30 AM) Mode of Delivery (Oxygen) Room air (12/25/21 8:30 AM) Blood pressure sites Arm, right (12/25/21 8:30 AM) Temperature Route Femoral (12/25/21 8:30 AM) Social History Social History Type Response Smoking Status Never smoker; Tobacco user i n household: No entered on: 07/29/14 Sex Care Team PersonnelName: Kiara BARRAZA, Jessica Grant Address: [address]
--- OUTSIDE RECORDS SUMMARY | 2022-03-20 14:45 | XMS_ITS | Continuity of Care Document ---
:1990 Author Organization [facility] Address [address] [place] [address]- Care Team Providers Name Role Phone Kiara BARRAZA, Jessica Grant Primary Care Physician Encounter [facility] Date(s): 01/10/22 - 02/09/22 [facility] [address] [place], [place] [address] Attending Physician: Kristin Hernandez Admitting Physician: Kristin Hernandez Referring Physician: AdmtrKristin Allergies, Adverse Reactions, Alerts Substance Reaction Severity Status ammoniated mercury topical Activ e iohexol Active Omnipaque 3001 Active Other Environmental Allergy2 Act shun 1facial [id number] spray Immunizations Given and Recorded Vaccine Date Status Refusal Reason SARS-CoV-2 (COVID-19) mRNA BNT-162b2 vac 07/29/20 Recorde d SARS-CoV-2 (COVID-19) mRNA BNT-162b2 vac 07/08/20 Recorde d influenza virus vaccine, inactivated1 01/23/19 Given influenza virus vaccine, inactivated 02/06/18 Recorded Typhoid Vaccine, Inactivated 07/09/13 Given Hepatitis A Adult Vaccine2 07/09/13 Given tetanus/diphtheria/pertussis, acel(Tdap)3 07/03/10 Given 1Result Comment: [facility] [phone] Comment: [07/09/2013] hep A #13Admin Note: 03/09/08 [...] Care team information PersonnelName: Kiara BARRAZA, Jessica August Juanita Address: Address: [address] [place] [id number]
--- OUTSIDE RECORDS SUMMARY | 2022-03-20 14:45 | XMS_ITS | Continuity of Care Document ---
:1990 Author Organization [facility] Address [address] [place] [address]- Care Team Providers Name Role Phone Kiara BARRAZA, Jessica Grant Primary Care Physician Encounter [facility] [place] Date(s): 06/14/21 - 07/16/21 [facility] [address] [place] [address]- Attending Physician: Jessica Craig MD Allergies, Adverse [...] Given tetanus/diphtheria/pertussis, acel(Tdap)3 07/03/10 Given 1Result Comment: [facility] [phone] Comment: [07/09/2013] hep A #13Admin Note: 03/09/08 [...] Gm, 0 Refills, Maintenance, 05/19/21 15:37:00 EST, [place],[facility]/pharmacy #2024, Partial fill upon patient request if [...] 1 Refills, Maintenance, 06/08/19 16:45:00 EST, [place], [facility]/pharmacy #2024, 169.5, cm, 06/08/19 16:11:00 EST, [...]
--- OUTSIDE RECORDS SUMMARY | 2022-03-20 14:45 | XMS_ITS | Continuity of Care Document ---
:1990 Author Organization [facility] Address [address] [place] [address]- Care Team Providers Name Role Phone Kiara BARRAZA, Jessica Grant Primary Care Physician Encounter [facility] Date(s): 02/05/22 - 03/07/22 [facility] [address] [place], [place] [address] Allergies, Adverse Reactions, Alerts Substance Reaction Severity Status ammoniated mercury topical Activ e iohexol Active Omnipaque 3001 Active Other Environmental Allergy2 Act shun 1facial [id number] spray Immunizations Given and Recorded Vaccine Date Status Refusal Reason SARS-CoV-2 (COVID-19) mRNA BNT-162b2 vac 07/29/20 Recorde d SARS-CoV-2 (COVID-19) mRNA BNT-162b2 vac 07/08/20 Recorde d influenza virus vaccine, inactivated1 01/23/19 Given influenza virus vaccine, inactivated 02/06/18 Recorded Typhoid Vaccine, Inactivated 07/09/13 Given Hepatitis A Adult Vaccine2 07/09/13 Given tetanus/diphtheria/pertussis, acel(Tdap)3 07/03/10 Given 1Result Comment: [facility] [phone] Comment: [07/09/2013] hep A #13Admin Note: 03/09/08 [...] Team PersonnelName: Kiara BARRAZA, Jessica Grant Position: [facility] Primary Care Physician Member Role: PCP Address: Address: [address] [place] [address]- Care Team Related PersonsName: KAROLINA DIGNA Address: home [address] [place] [address]
--- OUTSIDE RECORDS SUMMARY | 2022-03-20 14:45 | XMS_ITS | Continuity of Care Document ---
:1990 Author Organization [facility] Address [address] [place] [address]- Care Team Providers Name Role Phone Kiara BARRAZA, Jessica Grant Primary Care Physician [phone] [place] [facility] Date[place] 06/19/21 - 07/19/21 [facility] [address] [place], [place] [address] Attending Physician: Kristin Hernandez Admitting Physician: Kristin [...] tetanus/diphtheria/pertussis, acel(Tdap)3 07/03/10 Given 1Result Comment: [facility] [phone] Comment: [07/09/2013] hep A #13Admin Note: 03/09/08 [...] Gm, 0 Refills, Maintenance, 05/19/21 15:37:00 EST, [place],[facility]/pharmacy #2024, Partial fill upon patient request [...] 1 Refills, Maintenance, 06/08/19 16:45:00 EST, [place], [facility]/pharmacy #2024, 169.5, cm, 06/08/19 16:11:00 EST, [...]
--- OUTSIDE RECORDS SUMMARY | 2022-03-20 14:45 | XMS_ITS | Continuity of Care Document ---
:1990 Author Organization [facility] Address [address] [place] [address]- Care Team Providers Name Role Phone Jessica Craig MD Primary Care Physician [phone] Encounter [facility] Date(s): 12/27/21 - 01/26/22 [facility] [address] [place], [place] [address] Allergies, Adverse Reactions, Alerts Substance [...] tetanus/diphtheria/pertussis, acel(Tdap)3 07/03/10 Given 1Result Comment: [facility] [phone] Comment: [07/09/2013] hep A #13Admin Note: 03/09/08 [...] PersonnelName: Jessica Craig MD Address: Address: [address] [place] [address]-
--- OUTSIDE RECORDS SUMMARY | 2022-03-20 14:45 | XMS_ITS | Continuity of Care Document ---
:1990 Author Organization [facility] Address [address] [place] [address]- Care Team Providers Name Role Phone Kiara BARRAZA, Jessica Grant Primary Care Physician [phone] Encounter [facility] Date(s): 01/08/22 - 02/07/22 [facility] [address] [place], [place] [address] Allergies, Adverse Reactions, Alerts Substance Reaction Severity Status ammoniated mercury topical Activ e iohexol Active Omnipaque 3001 Active Other Environmental Allergy2 Act shun 1facial [id number] spray Immunizations Given and Recorded Vaccine Date Status Refusal Reason SARS-CoV-2 (COVID-19) mRNA BNT-162b2 vac 07/29/20 Recorde d SARS-CoV-2 (COVID-19) mRNA BNT-162b2 vac 07/08/20 Recorde d influenza virus vaccine, inactivated1 01/23/19 Given influenza virus vaccine, inactivated 02/06/18 Recorded Typhoid Vaccine, Inactivated 07/09/13 Given Hepatitis A Adult Vaccine2 07/09/13 Given tetanus/diphtheria/pertussis, acel(Tdap)3 07/03/10 Given 1Result Comment: [facility] [phone] Comment: [07/09/2013] hep A #13Admin Note: 03/09/08 [...] team information PersonnelName: Kiara BARRAZA, Jessica August Address: Address: [address] [place] [address]
--- OUTSIDE RECORDS SUMMARY | 2022-03-20 14:45 | XMS_ITS | Continuity of Care Document ---
:1990 Author Organization [facility] pt Address [address] [place] [address]- Care Team Providers Name Role Phone Kiara BARRAZA, Jessica Grant Primary Care Physician En[place] [facility] Date(s): 01/16/20 - 01/23/20 [facility] [address] [place] [address]- [facility] Attending Physician: Hue Sousa Referring Physician: Kiara BARRAZA, Jessica Grant Allergies, Adverse Reactions, Alerts Substance Reaction Severity Status Other Environmental Allergy1 Act shun 1ammonia spray Immunizations Given and Recorded Vaccine Date Status Refusal Reason influenza virus vaccine, inactivated1 01/23/19 Given Typhoid Vaccine, Inactivated 07/09/13 Given Hepatitis A Adult Vaccine2 07/09/13 Given tetanus/diphtheria/pertussis, acel(Tdap)3 07/03/10 Given 1Result Comment: [facility] [phone] Comment: [07/09/2013] hep A #13Admin Note: 03/09/08 [...] Refills, Maintenance, 06/08/19 16:45:00 EST, Tablet, [facility]/pharmacy #2025, 169.5, cm, 06/08/19 16:11:00 EST, Height, [...] oldest [Reference Range]: 1 Height 169.5 cm (01/16/20 9:38 AM) Oxygen Saturation [94-100 %] 100 % (01/16/20 9:38 AM) Pulse Rate [55-90 bpm] 62 bpm (01/16/20 9:38 AM) Blood Pressure [90-138/55-84 mm Hg] 114/53 mm Hg (9/26/20 9:38 AM) Respiratory Rate [16-30 br/min] 25 br/min (01/16/20 9:38 AM) Temperature [96.8-100.4 DegF] 97.9 DegF (01/16/20 9:38 AM) Mode of Delivery (Oxygen) Room air (01/16/20 9:38 AM) Blood pressure sites Arm, left (01/16/20 9:38 AM) Temperature Route Temporal (01/16/20 9:38 AM) Dry Weight 65.8 kg (01/16/20 9:38 AM) Weight Obtained Via Standing scale (01/16/20 9:38 AM) Social History Social History Type Response Smoking Status Never smoker; Tobacco user i n household: No entered on: 07/29/14 Sex
--- OUTSIDE RECORDS SUMMARY | 2022-03-20 14:45 | XMS_ITS | Continuity of Care Document ---
:1990 Author Organization [facility] Address [address] [place] [address]- Care Team Providers Name Role Phone Kiara BARRAZA, Jessica Grant Primary Care Physician Encounter [facility] Date(s): 06/07/20 - 06/14/20 [facility] [address] [place] [address]- Encounter Diagnosis Neuropathy of hand (Discharge Diagnosis) - 06/07/20 Attending Physician: Payam Falk MD Allergies, Adverse Reactions, Alerts Substance Reaction Severity Status Other Environmental Allergy1 Act shun 1ammonia spray Immunizations Given and Recorded Vaccine Date Status Refusal Reason influenza virus vaccine, inactivated1 01/23/19 Given Typhoid Vaccine, Inactivated 07/09/13 Given Hepatitis A Adult Vaccine2 07/09/13 Given tetanus/diphtheria/pertussis, acel(Tdap)3 07/03/10 Given 1Result Comment: [facility] [phone] Comment: [07/09/2013] hep A #13Admin Note: 03/09/08 [...] Dates Health Clinical Infor mant Status Service Neuropathy of Discharge 06/07/20 hand Diagnosis Vital Signs Most recent to oldest [Reference Range]: 1 Height 169.5 cm (06/07/20 9:28 AM) Social History Social History Type Response Smoking Status Never smoker; Tobacco user i n household: No entered on: 07/29/14 Sex
--- OUTSIDE RECORDS SUMMARY | 2022-03-20 14:45 | XMS_ITS | Continuity of Care Document ---
:1990 Author Organization [facility] Address [address] [place] [address]- Care Team Providers Name Role Phone Kiara BARRAZA, Jessica Grant Primary Care Physician Encounter [facility] Date(s): 06/14/21 - 07/19/21 [facility] [address] [place] [address]- Attending Physician: Jessica Craig MD Allergies, Adverse [...] Given tetanus/diphtheria/pertussis, acel(Tdap)3 07/03/10 Given 1Result Comment: [facility] [phone] Comment: [07/09/2013] hep A #13Admin Note: 03/09/08 [...] Gm, 0 Refills, Maintenance, 05/19/21 15:37:00 EST, [place],[facility]/pharmacy #2024, Partial fill upon patient [...]
--- OUTSIDE RECORDS SUMMARY | 2022-03-20 14:45 | XMS_ITS | Continuity of Care Document ---
:1990 Author Organization [facility] Address [address] [place] [address]- Care Team Providers Name Role Phone Kiara BARRAZA, Jessica Grant Primary Care Physician Encounter [facility] Date(s): 03/14/20 - 04/13/20 [facility] [address] [place] [address]- Attending Physician: Krisitn Hernandez Admitting Physician: AdmKristin pappas Referring Physician: AdmtrKristin Allergies, Adverse Reactions, Alerts Substance Reaction Severity Status Other Environmental Allergy1 Act shun 1ammonia spray Immunizations Given and Recorded Vaccine Date Status Refusal Reason influenza virus vaccine, inactivated1 01/23/19 Given Typhoid Vaccine, Inactivated 07/09/13 Given Hepatitis A Adult Vaccine2 07/09/13 Given tetanus/diphtheria/pertussis, acel(Tdap)3 07/03/10 Given 1Result Comment: [facility] [phone] Comment: [07/09/2013] hep A #13Admin Note: 03/09/08 [...]
--- OUTSIDE RECORDS SUMMARY | 2022-03-20 14:45 | XMS_ITS | Continuity of Care Document ---
:1990 Author Organization [facility] Address [address] [place] [address]- Care Team Providers Name Role Phone Kiara BARRAZA, Jessica Grant Primary Care Physician [place] [facility] Date(s): 05/11/21 - 06/10/21 [facility] [address] [place], [place] [address] Allergies, Adverse Reactions, Alerts Substance Reaction [...] Given tetanus/diphtheria/pertussis, acel(Tdap)3 07/03/10 Given 1Result Comment: [facility] [phone] Comment: [07/09/2013] hep A #13Admin Note: 03/09/08 [...] Gm, 0 Refills, Maintenance, 05/19/21 15:37:00 EST, [place],[facility]/pharmacy #2024, Partial fill upon patient request [...] 1 Refills, Maintenance, 06/08/19 16:45:00 EST, Tablet, [facility]/pharmacy #2024, 169.5, cm, 06/08/19 16:11:00 EST, [...]
--- OUTSIDE RECORDS SUMMARY | 2022-03-20 14:45 | XMS_ITS | Continuity of Care Document ---
:1990 Author Organization [facility] Address [address] [place] [address]- Care Team Providers Name Role Phone Kiara BARRAZA, Jessica Grant Primary Care Physician [phone] [place] [facility] [place] 12/25/21 - 01/24/22 [facility] [address] [place] [address]- Attending Physician: Kristin Hernandez Admitting Physician: Kristin [...] Given tetanus/diphtheria/pertussis, acel(Tdap)3 07/03/10 Given 1Result Comment: [facility] [phone] Comment: [07/09/2013] hep A #13Admin Note: 03/09/08 [...] PersonnelName: Kiara BARRAZA, Jessica Grant Address: Address: [address] [place] [id number]
--- OUTSIDE RECORDS SUMMARY | 2022-03-20 14:45 | XMS_ITS | Continuity of Care Document ---
:1990 Author Organization [facility] Address [address] [facility], [address] [address]- Care Team Providers Name Role Phone Kiara BARRAZA, Jessica Grant Primary Care Physician Encounter 02/06/22 - 02/13/22 [facility] [address], [address] [address]- Attending Physician: Jessica Craig MD Admitting Physician: Jessica Craig MD Referring Physician: Jessica Craig MD Allergies, Adverse Reactions, Alerts Substance Reaction Severity Status ammoniated mercury topical Activ e iohexol Active Omnipaque 3001 Active Other Environmental Allergy2 Act shun 1facial yzjrr9mqjckkr spray Immunizations Given and Recorded Vaccine Date Status Refusal Reason SARS-CoV-2 (COVID-19) mRNA BNT-162b2 vac 07/29/20 Recorde d SARS-CoV-2 (COVID-19) mRNA BNT-162b2 vac 07/08/20 Recorde d influenza virus vaccine, inactivated1 01/23/19 Given influenza virus vaccine, inactivated 02/06/18 Recorded Typhoid Vaccine, Inactivated 07/09/13 Given Hepatitis A Adult Vaccine2 07/09/13 Given tetanus/diphtheria/pertussis, acel(Tdap)3 07/03/10 Given 1Result Comment: [facility] [phone] Comment: [07/09/2013] hep A #13Admin Note: 03/09/08 [...] Kiara BARRAZA, Jessica August Juanita Address: Address: [address] [place] [id number]
--- NOTE | 2022-03-20 14:48 | ED.GENADULT ---
HPI - General Adult General Chief complaint: Dizziness Stated complaint: Low Heart Rate Sent by Dentist Time Seen by Provider: 03/20/22 14:33 Source: patient Mode of arrival: ambulatory Limitations: no limitations History of Present Illness HPI narrative: 31-year-old female with no significant past medical history presents to the emergency department after being referred by her dentist for having a ?low heart rate? during her appointment. She was scheduled to receive anesthesia for her the 10:30 a.m. dental procedure however the dentist was hesitant to provide the incision due to bradycardia. Patient reports that she has had dizziness and lightheaded for 3-4 months but has never spoken to a doctor regarding this. He denies any known illness or sick contacts. She reports she has a constant headache, for the last 12 years, which she describes as more of a ?lightheadedness?. She denies any past medical history although she has not followed regularly by a provider. She denies any prescribed medication, alcohol, marijuana, or other drugs. She also reports seeing a circular rash on her upper right leg and near her foot/ankle about 3-4 months ago. She denies any known tick bites, however; she states she was bitten by a bug, not a tick per patient, several months ago on her left upper leg and complains of weakness in the left leg since the bite. She denies any fever, chills, nausea, vomiting, diarrhea, constipation, vision changes. Onset (ago): hour(s) Related Data Allergies Allergy/AdvReac Type Severity Reaction Status Date / Time No Known Allergies Allergy Verified 03/20/22 14:14 [No Known Allergies*] [facility] Social History Social History Advance Directives: No Physical Exam ED Vital Signs: Vital Signs - 24 hr 03/20/22 14:15 03/20/22 14:59 03/20/22 16:07 Temperature 97.3 F Pulse Rate 56 54 50 Respiratory Rate 18 18 Blood Pressure 132/51 L 131/63 132/56 L Pulse Oximetry 100 Oxygen Delivery Method Room Air Room Air 03/20/22 16:09 03/20/22 16:11 Temperature Pulse Rate 63 58 Respiratory Rate Blood Pressure 122/48 L 132/61 Pulse Oximetry Oxygen Delivery Method BMI result Body Mass Index 25.0 Course Course Course Narrative: 1445: Lab work ordered including TSH, free T4, and Lyme workup. EKG completed, sinus bradycardia. Patient vital signs stable with BP 132/51 and HR 56. Patient appears in no acute distress 1515: to complete orthostatic bp Medical Decision Making [facility] Narrative Medical decision making narrative: 31-year-old female with no significant past medical history presents to the emergency department after being referred by her dentist for having a ?low heart rate? during her appointment. EKG completed, sinus bradycardia. Blood work unremarkable. TSH and free T4 within normal limits, indicating no thyroid disorder. Resting BP stable, heart rate 50s. Orthostatic BPs with no significant change. Serology to rule out Lyme disease drawn with results pending. Patient denies changes in symptoms from admission. States she has a baseline lightheadedness which has not changed over the past 3-4 months. Plan to discharge patient to follow-up with her regarding serology results. Low suspicion for acute MRI as EKG is sinus bradycardia without ectopy or AV block. Patient is safe for discharge. History, physical exam findings, and plan discussed with patient with no unanswered questions at this time. Educated to return to the hospital with worsening dizziness, feeling faint, passing out, fever, chills, changes in vision, worsening headache. Recommended follow-up with Cardiology and her primary care provider for further treatment and management. Lab Data Result diagrams: 03/20/22 14:59 03/20/22 14:59 Labs: Lab Results 03/20/22 03/20/22 03/20/22 Range/Units 14:59 14:59 14:59 WBC 7.8 (4.8-10.8) X10*3/uL RBC 4.70 (4.20-5.50) X10*6/uL Hgb 12.7 (12.0-16.0) g/dl Hct 39.6 (37.0-47.0) % MCV 84.3 (80.0-98.0) fL MCH 27.0 (27.0-33.0) pg MCHC 32.1 (31.0-35.0) g/dl RDW 13.8 (11.0-16.0) % Plt Count 272 (160-400) X10*3/uL MPV 9.2 L (9.4-12.3) fL Absolute Nucleated RBC 0.000 (0.0-0.012) X10*3/uL Nucleated RBC % (auto) 0.0 (0.0-0.2) /100WBC Sodium 137 (135-145) mmol/L Potassium 4.3 (3.3-5.1) mmol/L Chloride 103 (96-108) mmol/L Carbon Dioxide 27 (22-29) mmol/L Anion Gap 11 L (12-20) BUN 11 (9-16) mg/dL Creatinine 0.62 (0.5-1.4) mg/dL Estim Creat Clear Calc 120.8 Estimated GFR > 60 Random Glucose 87 (60-115) mg/dL Calcium 9.7 (8.4-10.2) mg/dL TSH 0.83 (0.32-4.0) uIU/mL Discharge Plan Discharge Clinical Impression: Bradycardia Patient Disposition: Home, Self-Care Instructions: Bradycardia (ED) Additional Instructions: Your blood work and thyroid levels were within normal limits. We le blood to test you for Lyme disease, however; can take several days to come back and we will call you with results. Educated to return to the hospital with worsening dizziness, feeling faint, passing out, fever, chills, changes in vision, worsening headache. Recommended follow-up with Cardiology and her primary care provider for further treatment and management. Referrals: Negrita Cuevas MD [Primary Care Provider] - Print Language: Telugu
[2022-03-20 14:59] VITALS: BP 131/63; PULSE 54; RESP 18
[2022-03-20 15:05] LABS: Hematocrit 39.6 % (37.0-47.0); Hemoglobin 12.7 g/dl (12.0-16.0); Mean Corpuscular HGB Conc 32.1 g/dl (31.0-35.0); Mean Corpuscular Volume 84.3 fL (80.0-98.0); Mean Platelet Volume 9.2 fL (9.4-12.3); Platelet Count 272 X10*3/uL (160-400); Red Cell Distribution Width 13.8 % (11.0-16.0); White Blood Count 7.8 X10*3/uL (4.8-10.8)
[2022-03-20 15:25] LABS: Anion Gap 11 (12-20); Blood Urea Nitrogen 11 mg/dL (9-16); Calcium 9.7 mg/dL (8.4-10.2); Carbon Dioxide 27 mmol/L (22-29); Chloride 103 mmol/L (96-108); Creatinine Clr Calc Pharmacy 120.8; Estimated Glomerular Filt Rate > 60; Glucose Random 87 mg/dL (60-115); Potassium 4.3 mmol/L (3.3-5.1); Sodium 137 mmol/L (135-145)
[2022-03-20 15:53] LABS: TSH reflex Free T4 0.83 uIU/mL (0.32-4.0)
[2022-03-20 16:07] VITALS: BP 132/56; PULSE 50
[2022-03-20 16:09] VITALS: BP 122/48; PULSE 63
[2022-03-20 16:11] VITALS: BP 132/61; PULSE 58
[2022-03-22 09:23] LABS: Lyme Abs Screen <0.90 index
== END 2022-03-20 17:26 | disposition home or self-care (01) ==
PROVIDERS: Nurse Practitioner Family; Student in an Organized Health Care Education/Training Program; Emergency Provider Emergency Medicine; PCP Pediatrics
DX: R00.1 Bradycardia, unspecified (principal); R42 Dizziness and giddiness; Z79.899 Other long term (current) drug therapy
CPT/HCPCS: 36415; 80048; 84443; 85027; 86617; 86618; 93005; 99283; 99284

== ENCOUNTER 2022-04-04 10:22 | Emergency (ER) | payer MEDICAID, SELFPAY ==
--- NOTE | ~2022-04-04 | CT_ITS ---
EXAMINATION: NONCONTRAST MAXILLOFACIAL CT NONCONTRAST CERVICAL SPINE CT INDICATION INFORMATION: Right-sided facial pain and neck pain COMPARISON: None TECHNIQUE: Separate noncontrast CT examinations of the maxillofacial bones and cervical spine were performed. Coronal and sagittal images were created for each examination at the technologist workstation. This CT examination was performed using dose optimization techniques as appropriate, variously including the following: *Automated exposure control *Adjustment of mA and/or kV according to patient size (this includes techniques or standardized protocols for targeted exams where dose is matched to indication/reason for exam; i.e. extremities or head) *Use of iterative reconstruction technique DLP: 709 mGy-cm FINDINGS: MAXILLOFACIAL: No acute facial bone fractures are seen. Minimal subcutaneous edema in the right cheek. Right maxillary sinus is relatively small. There is minimal mucosal thickening in the maxillary sinuses. Leftward nasal septal deviation. Sphenoid and frontal sinuses are well aerated. Patent sphenoethmoidal recesses and frontal sinus drainage pathways. Some secretions/mucous in posterior left ethmoid air cells noted. No hyperostosis or air-fluid levels. The mandibular heads are normally positioned in the glenoid fossa. Periapical lucency surrounds the root of the left first mandibular premolar tooth. The orbits demonstrate a normal appearance bilaterally. The globes are intact. No evidence of retrobulbar hemorrhage. Major salivary glands are unremarkable. No thickening of the posterior nasopharyngeal soft tissues. 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 Visualized intracranial contents grossly unremarkable-limited assessment. Mastoid air cells normally aerated. CERVICAL SPINE: Alignment:Slight reversal the normal cervical lordosis. Minimal grade 1 anterolisthesis at C2-C3, C3-C4, C4-C5. No additional subluxation. Vertebra:No acute fracture. No prevertebral soft tissue swelling. Degenerative disc disease:No significant. Preserved intervertebral disc heights. Other findings:No cervical lymphadenopathy. Visualized thyroid gland is unremarkable. Visualized base of the brain is grossly unremarkable. Visualized lung apices are clear. CT/CT facial bones wo IV con IMPRESSION: 1. No acute facial bone fracture. 2. Minimal subcutaneous edema in the right cheek. 3. No traumatic subluxation or acute cervical spine fracture.
--- NOTE | ~2022-04-04 | CT_ITS ---
EXAMINATION: NONCONTRAST MAXILLOFACIAL CT NONCONTRAST CERVICAL SPINE CT INDICATION INFORMATION: Right-sided facial pain and neck pain COMPARISON: None TECHNIQUE: Separate noncontrast CT examinations of the maxillofacial bones and cervical spine were performed. Coronal and sagittal images were created for each examination at the technologist workstation. This CT examination was performed using dose optimization techniques as appropriate, variously including the following: *Automated exposure control *Adjustment of mA and/or kV according to patient size (this includes techniques or standardized protocols for targeted exams where dose is matched to indication/reason for exam; i.e. extremities or head) *Use of iterative reconstruction technique DLP: 709 mGy-cm FINDINGS: MAXILLOFACIAL: No acute facial bone fractures are seen. Minimal subcutaneous edema in the right cheek. Right maxillary sinus is relatively small. There is minimal mucosal thickening in the maxillary sinuses. Leftward nasal septal deviation. Sphenoid and frontal sinuses are well aerated. Patent sphenoethmoidal recesses and frontal sinus drainage pathways. Some secretions/mucous in posterior left ethmoid air cells noted. No hyperostosis or air-fluid levels. The mandibular heads are normally positioned in the glenoid fossa. Periapical lucency surrounds the root of the left first mandibular premolar tooth. The orbits demonstrate a normal appearance bilaterally. The globes are intact. No evidence of retrobulbar hemorrhage. Major salivary glands are unremarkable. No thickening of the posterior nasopharyngeal soft tissues. 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 Visualized intracranial contents grossly unremarkable-limited assessment. Mastoid air cells normally aerated. CERVICAL SPINE: Alignment:Slight reversal the normal cervical lordosis. Minimal grade 1 anterolisthesis at C2-C3, C3-C4, C4-C5. No additional subluxation. Vertebra:No acute fracture. No prevertebral soft tissue swelling. Degenerative disc disease:No significant. Preserved intervertebral disc heights. Other findings:No cervical lymphadenopathy. Visualized thyroid gland is unremarkable. Visualized base of the brain is grossly unremarkable. Visualized lung apices are clear. CT/CT cervical spine wo IV con IMPRESSION: 1. No acute facial bone fracture. 2. Minimal subcutaneous edema in the right cheek. 3. No traumatic subluxation or acute cervical spine fracture.
[2022-04-04 11:00] VITALS: BP 117/60; PULSE 70; RESP 16; TEMP 36.9; O2SAT 100; BMI 29.2
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
[2022-04-04 12:18] VITALS: BP 120/64; PULSE 60; RESP 16; TEMP 37; O2SAT 100
== END 2022-04-04 14:34 | disposition home or self-care (01) ==
PROVIDERS: Emergency Provider Student in an Organized Health Care Education/Training Program; PCP Pediatrics
DX: T74.11XA Adult physical abuse, confirmed, initial encounter (principal); Y07.01 Husband, perpetrator of maltreatment and neglect; M54.2 Cervicalgia; R51.9 Headache, unspecified
CPT/HCPCS: 70486; 72125; 99284